=== PATIENT | female | born 1970 | race Hispanic/Latino ===

== ENCOUNTER 2022-10-26 08:09 | Observation (INO) | payer BC ==
[2022-10-22 13:25] VITALS: BMI 32.2
[2022-10-22 15:26] LABS: Hemoglobin 14.7 g/dL (12.0-15.5); Mean Corpuscular HGB CONC 32.2 g/dL (32.0-36.0); Mean Corpuscular Hemoglobin 29.2 pg (27.0-33.0); Mean Corpuscular Volume 90.9 fl (81.6-98.3); Mean Platelet Volume 10.6 fl (7.4-10.4); Platelet Count 354 10x3/uL (150-450); RBC Distribution Width 12.6 % (11.5-14.5); Red Blood Cell (RBC) Count 5.03 10x6/uL (3.90-5.03); White Blood Cell (WBC) Count 10.6 10x3/uL (3.5-10.5)
[2022-10-22 15:34] LABS: BHCG - Serum Negative (NEGATIVE); Pregs Control Background? CLEAR/WHITE (CLR/WHITE); Pregs Control Bar Appear? YES (CONTROL BAR)
[2022-10-26] MEDS ORDERED: Gabapentin 300 MG CAP ONE (08:44)
[2022-10-26] MEDS ORDERED: CeleCOXIB 100 MG CAP ONE (08:44)
[2022-10-26] MEDS ORDERED: Famotidine/PF 20 mg/2ml Vial ONE (08:44)
[2022-10-26] MEDS ORDERED: Bupivacaine HCl 0.5%/Epinephrine 1:200,000/PF 30 ml Vial ONE (09:35)
[2022-10-26] MEDS ORDERED: Lidocaine 1% w/Epinephrine 1:100K 20 ML VIAL ONE (09:36)
[2022-10-26] MEDS ORDERED: PROPOFOL 20 ML ONE (09:42)
[2022-10-26] MEDS ORDERED: Rocuronium Bromide 10 MG/ML (10ML VIAL) ONE (09:43)
[2022-10-26] MEDS ORDERED: Ondansetron PF 4 MG/2 ML Vial ONE (09:43)
[2022-10-26] MEDS ORDERED: Lidocaine 1% PF 5 ML VIAL ONE (09:43)
[2022-10-26] MEDS ORDERED: Fentanyl 250 MCG/5 ML VIAL ONE (09:43)
[2022-10-26] MEDS ORDERED: Dexamethasone 20 MG/5 ML VIAL ONE (09:43)
[2022-10-26] MEDS ORDERED: Midazolam HCl 2 mg/2 ml Vial ONE (10:03)
[2022-10-26] MEDS ORDERED: CEFAZOLIN 2 GM VIAL ONE (10:05)
[2022-10-26] MEDS ORDERED: Glycopyrrolate 0.2 MG/ML 5 ML SYRINGE ONE (12:13)
[2022-10-26] MEDS ORDERED: HYDROcodone/Acetaminophen 5/325 mg Tablet PO PRN ×2 (12:18)
[2022-10-26] MEDS ORDERED: traMADol HCl 50 MG TAB PO PRN (12:18)
[2022-10-26] MEDS ORDERED: diphenhydrAMINE 25 MG CAP PO PRN (12:18)
[2022-10-26] MEDS ORDERED: Promethazine HCl 25 MG/ML VIAL IM PRN (12:18)
[2022-10-26] MEDS ORDERED: Bisacodyl 10 MG SUPP PR PRN (12:18)
[2022-10-26] MEDS ORDERED: Zolpidem Tartrate 5 MG TAB PO PRN (12:18)
[2022-10-26] MEDS ORDERED: Ondansetron PF 4 MG/2 ML Vial IVP PRN (12:18)
[2022-10-26] MEDS ORDERED: fentaNYL 50 mcg/mL 1 mL Vial ONE (13:05)
[2022-10-26] MEDS: fentaNYL 50 mcg/mL 1 mL Vial SLOW IVP PRN ×4 (14:33→23:27)
[2022-10-26] MEDS: Sodium Chloride 0.9% 1,000 ML IV SCH ×2 (15:11→20:05)
[2022-10-26] MEDS: Ketorolac Tromethamine 30 MG/ML VIAL IVP SCH (17:54)
[2022-10-26] MEDS: Simethicone Chewable 80 MG TAB PO PRN (20:03)
[2022-10-26] MEDS ORDERED: HYDROcodone/Acetaminophen 10/325 mg Tablet PO PRN (20:15)
[2022-10-26] MEDS: Docusate 100 MG CAP PO SCH (21:30)
[2022-10-26] MEDS: HYDROcodone/Acetaminophen 10/325 mg Tablet PO PRN (22:37)
[2022-10-27] MEDS ORDERED: Ketorolac Tromethamine 30 MG/ML VIAL IVP SCH (00:15)
[2022-10-27] MEDS: Ketorolac Tromethamine 30 MG/ML VIAL IVP SCH (00:25)
[2022-10-27] MEDS: HYDROcodone/Acetaminophen 10/325 mg Tablet PO PRN ×2 (02:59→08:45)
[2022-10-27 04:12] LABS: Hemoglobin 13.1 g/dL (12.0-15.5); Mean Corpuscular HGB CONC 32.6 g/dL (32.0-36.0); Mean Corpuscular Hemoglobin 28.9 pg (27.0-33.0); Mean Corpuscular Volume 88.7 fl (81.6-98.3); Mean Platelet Volume 10.6 fl (7.4-10.4); Platelet Count 315 10x3/uL (150-450); RBC Distribution Width 12.7 % (11.5-14.5); Red Blood Cell (RBC) Count 4.53 10x6/uL (3.90-5.03); White Blood Cell (WBC) Count 18.1 10x3/uL (3.5-10.5)
[2022-10-27] MEDS ORDERED: Ibuprofen 800 MG TAB PO SCH (06:00)
[2022-10-27] MEDS ORDERED: Levothyroxine Sodium 100 MCG TAB PO SCH (06:00)
[2022-10-27] MEDS: fentaNYL 50 mcg/mL 1 mL Vial SLOW IVP PRN (06:21)
[2022-10-27 08:41] VITALS: BP 133/60; TEMP 97.8
[2022-10-27] MEDS: Docusate 100 MG CAP PO SCH (08:45)
[2022-10-27] MEDS: Simethicone Chewable 80 MG TAB PO PRN (12:13)
[2022-10-27] MEDS ORDERED: BUPRENORPHINE HCL 150 MCG BC SCH (21:00)
== END 2022-10-27 12:15 | disposition home or self-care (01) ==
LOC: CSHSDC 08:09 → CSHPP 14:19
PROVIDERS: ADMIT Obstetrics & Gynecology; ATTEND Obstetrics & Gynecology
PROC: 0UT94ZZ Resection of Uterus, Percutaneous Endoscopic Approach (ICD-10-PCS; principal; 2022-10-26)
PROC: 0UT74ZZ Resection of Bilateral Fallopian Tubes, Percutaneous Endoscopic Approach (ICD-10-PCS; 2022-10-26)
PROC: 0TSD4ZZ Reposition Urethra, Percutaneous Endoscopic Approach (ICD-10-PCS; 2022-10-26)
PROC: 0JQC3ZZ Repair Pelvic Region Subcutaneous Tissue and Fascia, Percutaneous Approach (ICD-10-PCS; 2022-10-26)
DX: N39.3 Stress incontinence (female) (male) (principal); N81.2 Incomplete uterovaginal prolapse; N73.6 Female pelvic peritoneal adhesions (postinfective); E03.9 Hypothyroidism, unspecified; F41.9 Anxiety disorder, unspecified; F17.200 Nicotine dependence, unspecified, uncomplicated; Z90.49 Acquired absence of other specified parts of digestive tract; Z79.899 Other long term (current) drug therapy
CPT/HCPCS: 36415; 84703; 85027; 86850; 86900; 86901; 88305; 96374; 96375; 96376; C1781; G0378; J1100; J1885; J2250; J2405; J2704; J3010; J7050; Q9968; S0028

== ENCOUNTER 2024-05-24 11:45 | Outpatient (CLI) | payer BC | END 2024-05-24 11:46 | disposition home or self-care (01) | LOC: CSHMAMMO 11:45 | PROVIDERS: ATTEND Family Medicine | DX: M81.0 Age-related osteoporosis without current pathological fracture (principal); M85.851 Other specified disorders of bone density and structure, right thigh; M85.852 Other specified disorders of bone density and structure, left thigh | CPT/HCPCS: 77080 ==